=== PATIENT | male | born 1960 | race Caucasian/White ===

== ENCOUNTER 2017-07-28 23:03 | Emergency (ER) | payer OTHER ==
[~2017-07-28] VITALS: Ht 172.7 cm; Wt 77.1 kg
[2017-07-29 00:32] LABS: HEMATOCRIT 53.8 % (42.0-52.0); HEMOGLOBIN 18.7 gm/dL (14.0-18.0); MCH 30.8 pg (26.0-34.0); MCHC 34.7 g/dL (28.0-37.0); MCV 88.8 fL (80.0-100.0); RBC 6.06 mil/uL (4.50-6.00); RDW 14.3 % (10.5-14.5); WBC 11.5 thou/uL (4.0-11.0)
[2017-07-29 00:41] LABS: ANION GAP 3 mmol/L (7-16); BUN 17 mg/dL (7-18); CALCIUM 9.3 mg/dL (8.5-10.1); CHLORIDE 102 mmol/L (98-107); CO2 36 mmol/L (21-32); CREATININE 0.9 mg/dL (0.7-1.3); GLUCOSE 99 mg/dL (74-106); POTASSIUM 4.8 mmol/L (3.5-5.1); SODIUM 141 mmol/L (136-145)
[2017-07-29 00:49] LABS: TROPONIN-I < 0.04 ng/mL (<0.04-0.07)
[2017-07-29 00:52] LABS: ACETAMINOPHEN < 2 ug/mL (10-30)
[2017-07-29 03:00] LABS: AMP/METHAMP Negative (Negative); BARBITURATES Negative (Negative); BENZODIAZEPINES Negative (Negative); COCAINE Negative (Negative); METHADONE Negative (Negative); OPIATES Negative (Negative); PCP Negative (Negative); THC Negative (Negative)
== END 2017-07-29 11:15 | disposition home or self-care (01) ==
LOC: ER 23:03
PROVIDERS: Emergency Medicine
DX: F10.120 Alcohol abuse with intoxication, uncomplicated (principal); F17.210 Nicotine dependence, cigarettes, uncomplicated